=== PATIENT | female | born 1930 | race Caucasian/White ===

== ENCOUNTER 2016-09-11 | Outpatient (CLI) | payer MEDICARE, OTHER | END 2016-09-11 09:13 | disposition critical access hospital (66) | CPT/HCPCS: A0425; A0427 ==

== ENCOUNTER 2016-09-11 09:41 | Inpatient (IN) | payer MEDICARE, OTHER ==
[2016-09-11] MEDS ORDERED: HYDROmorphone 1 MG/ML SYRINGE IVP STA (10:34)
[2016-09-11] MEDS ORDERED: HYDROmorphone 1 MG/ML SYRINGE ONE (10:38)
[2016-09-11] MEDS ORDERED: MOXIFLOXACIN 400MG/250ML IV 250 ML IV STA (11:56)
[2016-09-11] MEDS ORDERED: metroNIDAZOLE 500 MG/100 ML 100 ML IV ONE (12:07)
[2016-09-11] MEDS ORDERED: LACTATED RINGERS 300 ML IV ONE (13:13)
[2016-09-11] MEDS ORDERED: LACTATED RINGERS 1,000 ML IV ONE ×2 (13:56→15:09)
[2016-09-11] MEDS ORDERED: ROCURONIUM 50 MG/5 ML VIAL IVP ONE (14:37)
[2016-09-11] MEDS ORDERED: ACETAMINOPHEN 1,000 MG/100 ML VIAL IV ONE (14:37)
[2016-09-11] MEDS ORDERED: VASOPRESSIN 20 UNIT/ML VIAL IVP ONE (14:37)
[2016-09-11] MEDS ORDERED: fentaNYL 100 MCG/2 ML VIAL IVP ONE (14:37)
[2016-09-11] MEDS ORDERED: metroNIDAZOLE 500 PREMIX IV ONE (14:37)
[2016-09-11] MEDS ORDERED: PHENYLEPHRINE 10 MG/ML VIAL IV ONE (14:37)
[2016-09-11] MEDS ORDERED: HYDROmorphone 1 MG/ML SYRINGE IVP ONE (14:37)
[2016-09-11] MEDS ORDERED: ONDANSETRON 4 MG/2 ML VIAL IVP ONE (14:37)
[2016-09-11] MEDS ORDERED: GLYCOPYRROLATE 1 MG/5 ML VIAL IVP ONE (14:37)
[2016-09-11] MEDS ORDERED: MIDAZOLAM 2 MG/2 ML VIAL IVP ONE (14:37)
[2016-09-11] MEDS ORDERED: SUCCINYLCHOLINE 200 MG/10 ML VIAL IVP ONE (14:37)
[2016-09-11] MEDS ORDERED: DEXAMETHASONE 4 MG/ML VIAL IVP ONE (14:37)
[2016-09-11] MEDS ORDERED: LIDOCAINE-MPF 2% 5 ML VIAL IM ONE (14:37)
[2016-09-11] MEDS ORDERED: PROPOFOL 200 MG/20 ML VIAL IVP ONE (14:37)
[2016-09-11] MEDS ORDERED: SODIUM CHLORIDE FLUSH 0.9% 10 ML SYRINGE IVP PRN (15:19)
[2016-09-11] MEDS ORDERED: fentaNYL 100 MCG/2 ML VIAL ONE (15:24)
[2016-09-11] MEDS ORDERED: LACTATED RINGERS 1,000 ML IV SCH (16:00)
[2016-09-11] MEDS ORDERED: metroNIDAZOLE 500 MG/100 ML 100 ML IV SCH (16:00)
[2016-09-11] MEDS: HYDROmorphone PCA 10 MG IV PRN (16:09)
[2016-09-11] MEDS: ACETAMINOPHEN 1,000 MG/100 ML 100 ML IV SCH ×2 (16:43→23:53)
[2016-09-11] MEDS: SODIUM CHLORIDE 0.9% 1,000 ML IV SCH (18:14)
[2016-09-11] MEDS: ENALAPRILAT 1.25 MG/ML VIAL IVP SCH (18:16)
[2016-09-11] MEDS: ONDANSETRON 4 MG/2 ML VIAL IVP PRN (18:16)
[2016-09-11] MEDS: MAGNESIUM SULFATE 2 GRAM 50 ML IV SCH ×2 (19:51→20:50)
[2016-09-11] MEDS ORDERED: LATANOPROST 0.005% OPHTH DROPS EACHEYE SCH (21:00)
[2016-09-11] MEDS: PANTOPRAZOLE 40 MG VIAL IVP SCH (21:22)
[2016-09-11] MEDS: SODIUM CHLORIDE FLUSH 0.9% 10 ML SYRINGE IVP SCH (21:56)
[2016-09-11] MEDS: BRIMONIDINE 0.15% OPHTH DROPS 5 ML EACHEYE SCH (21:57)
[2016-09-11] MEDS: metroNIDAZOLE 500 MG/100 ML 100 ML IV SCH (21:57)
[2016-09-12] MEDS: ENALAPRILAT 1.25 MG/ML VIAL IVP SCH ×2 (00:11→06:47)
[2016-09-12] MEDS: ACETAMINOPHEN 1,000 MG/100 ML 100 ML IV SCH ×4 (05:24→21:28)
[2016-09-12] MEDS ORDERED: HEPARIN 5,000 UNIT/ML VIAL SUBQ SCH (06:00)
[2016-09-12] MEDS: metroNIDAZOLE 500 MG/100 ML 100 ML IV SCH (06:15)
[2016-09-12] MEDS: SODIUM CHLORIDE 0.9% 1,000 ML IV SCH ×3 (06:42→22:41)
[2016-09-12] MEDS: BRIMONIDINE 0.15% OPHTH DROPS 5 ML EACHEYE SCH ×3 (06:44→21:28)
[2016-09-12] MEDS: SODIUM CHLORIDE FLUSH 0.9% 10 ML SYRINGE IVP SCH ×3 (06:45→21:29)
[2016-09-12] MEDS: PANTOPRAZOLE 40 MG VIAL IVP SCH ×2 (09:05→21:28)
[2016-09-12] MEDS ORDERED: SODIUM POLYSTYRENE SULFONATE 15 GM/60 ML BOTTLE PR ONE (09:30)
[2016-09-12] MEDS ORDERED: MOXIFLOXACIN 400MG/250ML IV 250 ML IV SCH (12:00)
[2016-09-12] MEDS ORDERED: SODIUM CHLORIDE 0.9% 500 ML IV ONE (13:14)
[2016-09-12] MEDS ORDERED: SODIUM CHLORIDE 0.9% 500 ML IV PRN (14:53)
[2016-09-12] MEDS: TPN (CLINIMIX E 5/15) 2,000 ML with MULTIVITAMIN 10 ML, TRACE ELEMENTS V CONC 1 ML IV SCH ×3 (19:12)
[2016-09-12] MEDS: FAT EMULSION 20% 250 ML IV SCH (19:12)
[2016-09-12] MEDS: HEPARIN 5,000 UNIT/ML VIAL SUBQ SCH (21:28)
[2016-09-13] MEDS: ACETAMINOPHEN 1,000 MG/100 ML 100 ML IV SCH ×4 (04:33→21:04)
[2016-09-13] MEDS: BRIMONIDINE 0.15% OPHTH DROPS 5 ML EACHEYE SCH ×3 (06:18→21:05)
[2016-09-13] MEDS: SODIUM CHLORIDE FLUSH 0.9% 10 ML SYRINGE IVP SCH ×3 (06:19→21:05)
[2016-09-13] MEDS: SODIUM CHLORIDE 0.9% 1,000 ML IV SCH ×3 (09:09→21:04)
[2016-09-13] MEDS: PANTOPRAZOLE 40 MG VIAL IVP SCH ×2 (09:12→21:04)
[2016-09-13] MEDS: SODIUM CHLORIDE FLUSH 0.9% 10 ML SYRINGE IVP PRN ×2 (09:20→09:21)
[2016-09-13] MEDS: HEPARIN 5,000 UNIT/ML VIAL SUBQ SCH ×2 (09:22→21:04)
[2016-09-13] MEDS: IMIPENEM/CILASTATIN 250 MG in SODIUM CHLORIDE 0.9% MINIBAG 100 ML IV SCH ×2 (13:23→19:18)
[2016-09-13] MEDS: TPN (CLINIMIX E 5/15) 2,000 ML with MULTIVITAMIN 10 ML, TRACE ELEMENTS V CONC 1 ML IV SCH ×3 (19:19)
[2016-09-13] MEDS: FAT EMULSION 20% 250 ML IV SCH (19:19)
[2016-09-13] MEDS ORDERED: METOPROLOL 5 MG/5 ML VIAL IVP STA (21:09)
[2016-09-14] MEDS: HYDROmorphone PCA 10 MG IV PRN (00:29)
[2016-09-14] MEDS: IMIPENEM/CILASTATIN 250 MG in SODIUM CHLORIDE 0.9% MINIBAG 100 ML IV SCH ×3 (02:12→18:33)
[2016-09-14] MEDS: ACETAMINOPHEN 1,000 MG/100 ML 100 ML IV SCH ×5 (03:47→20:29)
[2016-09-14] MEDS: BRIMONIDINE 0.15% OPHTH DROPS 5 ML EACHEYE SCH ×3 (05:02→21:02)
[2016-09-14] MEDS: SODIUM CHLORIDE FLUSH 0.9% 10 ML SYRINGE IVP SCH ×3 (05:03→21:02)
[2016-09-14] MEDS ORDERED: POTASSIUM PHOSPHATE 15 MMOL in SODIUM CHLORIDE 0.9% 250 ML IV ONE (06:16)
[2016-09-14] MEDS: SODIUM CHLORIDE 0.9% 1,000 ML IV SCH (08:12)
[2016-09-14] MEDS: HEPARIN 5,000 UNIT/ML VIAL SUBQ SCH ×2 (09:33→20:29)
[2016-09-14] MEDS: PANTOPRAZOLE 40 MG VIAL IVP SCH ×2 (09:36→20:29)
[2016-09-14] MEDS: SODIUM CHLORIDE FLUSH 0.9% 10 ML SYRINGE IVP PRN ×2 (09:37→11:49)
[2016-09-14] MEDS: ENALAPRILAT 1.25 MG/ML VIAL IVP PRN ×2 (11:47→20:29)
[2016-09-14] MEDS: METOPROLOL 5 MG/5 ML VIAL IVP PRN ×2 (16:20→22:47)
[2016-09-14] MEDS: FAT EMULSION 20% 250 ML IV SCH (19:06)
[2016-09-14] MEDS: TPN (CLINIMIX E 5/15) 2,000 ML with MULTIVITAMIN 10 ML, TRACE ELEMENTS V CONC 1 ML IV SCH ×3 (19:07)
[2016-09-15] MEDS: IMIPENEM/CILASTATIN 250 MG in SODIUM CHLORIDE 0.9% MINIBAG 100 ML IV SCH ×3 (01:34→18:21)
[2016-09-15] MEDS: ACETAMINOPHEN 1,000 MG/100 ML 100 ML IV SCH ×4 (01:34→21:08)
[2016-09-15] MEDS: ENALAPRILAT 1.25 MG/ML VIAL IVP PRN (01:50)
[2016-09-15] MEDS ORDERED: POTASSIUM PHOSPHATE 15 MMOL in SODIUM CHLORIDE 0.9% 250 ML IV ONE (05:39)
[2016-09-15] MEDS ORDERED: MAGNESIUM SULFATE 2 GRAM 50 ML IV ONE (05:39)
[2016-09-15] MEDS: SODIUM CHLORIDE FLUSH 0.9% 10 ML SYRINGE IVP SCH ×3 (05:54→21:09)
[2016-09-15] MEDS: BRIMONIDINE 0.15% OPHTH DROPS 5 ML EACHEYE SCH ×3 (05:54→21:10)
[2016-09-15] MEDS: POTASSIUM CHLOR 20 MEQ/100 ML 100 ML IV SCH ×2 (05:54→07:51)
[2016-09-15] MEDS: METOPROLOL 5 MG/5 ML VIAL IVP PRN ×2 (06:07→17:35)
[2016-09-15] MEDS ORDERED: cloNIDine 0.1 MG PATCH TOP SCH (08:00)
[2016-09-15] MEDS: SODIUM CHLORIDE 0.9% 1,000 ML IV SCH (08:22)
[2016-09-15] MEDS: HEPARIN 5,000 UNIT/ML VIAL SUBQ SCH ×2 (09:14→21:04)
[2016-09-15] MEDS: PANTOPRAZOLE 40 MG VIAL IVP SCH ×2 (09:16→21:09)
[2016-09-15] MEDS ORDERED: A & D OINTMENT 5 GM PACKET TOP ONE (09:29)
[2016-09-15] MEDS ORDERED: SODIUM CHLORIDE FLUSH 0.9% 10 ML SYRINGE IVP PRN (12:28)
[2016-09-15] MEDS ORDERED: SODIUM CHLORIDE FLUSH 0.9% 10 ML SYRINGE IVP SCH (14:00)
[2016-09-15] MEDS ORDERED: IMIPENEM/CILASTATIN 250 MG in SODIUM CHLORIDE 0.9% MINIBAG 100 ML IV SCH (14:00)
[2016-09-15] MEDS: [UNRECOGNIZED DRUG - OTHER] IV SCH ×8 (18:26)
[2016-09-15] MEDS: FAT EMULSION 20% 250 ML IV SCH (18:26)
[2016-09-15] MEDS: TPN IV SCH ×8 (18:26)
[2016-09-15] MEDS: MULTIVITAMIN IV SCH ×8 (18:26)
[2016-09-15] MEDS: TRACE ELEMENTS V IV SCH ×8 (18:26)
[2016-09-16] MEDS: IMIPENEM/CILASTATIN 250 MG in SODIUM CHLORIDE 0.9% MINIBAG 100 ML IV SCH ×3 (01:22→18:20)
[2016-09-16] MEDS: ACETAMINOPHEN 1,000 MG/100 ML 100 ML IV SCH ×4 (01:22→19:41)
[2016-09-16] MEDS: SODIUM CHLORIDE FLUSH 0.9% 10 ML SYRINGE IVP SCH ×3 (05:18→21:03)
[2016-09-16] MEDS: BRIMONIDINE 0.15% OPHTH DROPS 5 ML EACHEYE SCH ×3 (05:19→21:03)
[2016-09-16] MEDS ORDERED: A & D OINTMENT 5 GM PACKET TOP PRN (05:31)
[2016-09-16] MEDS ORDERED: A & D OINTMENT 5 GM PACKET TOP ONE (05:40)
[2016-09-16] MEDS: HEPARIN 5,000 UNIT/ML VIAL SUBQ SCH ×2 (09:58→21:02)
[2016-09-16] MEDS: PANTOPRAZOLE 40 MG VIAL IVP SCH ×2 (09:58→21:03)
[2016-09-16] MEDS: HYDROmorphone PCA 10 MG IV PRN (13:30)
[2016-09-16] MEDS: ONDANSETRON 4 MG/2 ML VIAL IVP PRN (16:02)
[2016-09-16] MEDS: SODIUM CHLORIDE 0.9% 1,000 ML IV SCH (18:19)
[2016-09-16] MEDS: TPN IV SCH ×8 (18:20)
[2016-09-16] MEDS: FAT EMULSION 20% 250 ML IV SCH (18:20)
[2016-09-16] MEDS: MULTIVITAMIN IV SCH ×8 (18:20)
[2016-09-16] MEDS: [UNRECOGNIZED DRUG - OTHER] IV SCH ×8 (18:20)
[2016-09-16] MEDS: TRACE ELEMENTS V IV SCH ×8 (18:20)
[2016-09-16] MEDS ORDERED: MIN OIL/DIMETHICON/COCONUT OIL 92 GM TUBE TOP PRN (23:31)
[2016-09-17] MEDS: ACETAMINOPHEN 1,000 MG/100 ML 100 ML IV SCH ×4 (01:09→21:11)
[2016-09-17] MEDS: IMIPENEM/CILASTATIN 250 MG in SODIUM CHLORIDE 0.9% MINIBAG 100 ML IV SCH ×3 (01:09→19:08)
[2016-09-17] MEDS: BRIMONIDINE 0.15% OPHTH DROPS 5 ML EACHEYE SCH ×3 (05:53→21:12)
[2016-09-17] MEDS: SODIUM CHLORIDE FLUSH 0.9% 10 ML SYRINGE IVP SCH ×3 (05:54→21:12)
[2016-09-17] MEDS: SODIUM CHLORIDE FLUSH 0.9% 10 ML SYRINGE IVP PRN ×2 (05:54→10:15)
[2016-09-17] MEDS: PANTOPRAZOLE 40 MG VIAL IVP SCH ×2 (08:39→21:11)
[2016-09-17] MEDS: HEPARIN 5,000 UNIT/ML VIAL SUBQ SCH ×2 (08:40→21:09)
[2016-09-17] MEDS: ONDANSETRON 4 MG/2 ML VIAL IVP PRN (14:26)
[2016-09-17] MEDS ORDERED: BISACODYL 10 MG SUPP PR ONE ×2 (14:45→17:00)
[2016-09-17] MEDS ORDERED: DIATR MEGLU/DIATRIZOATE SODIUM 120 ML BOTTLE PO ONE (16:10)
[2016-09-17] MEDS: FAT EMULSION 20% 250 ML IV SCH (19:08)
[2016-09-17] MEDS: MULTIVITAMIN IV SCH ×8 (19:08)
[2016-09-17] MEDS: TRACE ELEMENTS V IV SCH ×8 (19:08)
[2016-09-17] MEDS: TPN IV SCH ×8 (19:08)
[2016-09-17] MEDS: [UNRECOGNIZED DRUG - OTHER] IV SCH ×8 (19:08)
[2016-09-18] MEDS: ACETAMINOPHEN 1,000 MG/100 ML 100 ML IV SCH (01:54)
[2016-09-18] MEDS: IMIPENEM/CILASTATIN 250 MG in SODIUM CHLORIDE 0.9% MINIBAG 100 ML IV SCH ×3 (02:44→19:51)
[2016-09-18] MEDS: ONDANSETRON 4 MG/2 ML VIAL IVP PRN ×3 (04:41→16:30)
[2016-09-18] MEDS: SODIUM CHLORIDE FLUSH 0.9% 10 ML SYRINGE IVP SCH ×3 (06:09→19:52)
[2016-09-18] MEDS: BRIMONIDINE 0.15% OPHTH DROPS 5 ML EACHEYE SCH ×3 (06:18→21:07)
[2016-09-18] MEDS: HYDROmorphone PCA 10 MG IV PRN (07:42)
[2016-09-18] MEDS ORDERED: BISACODYL 10 MG SUPP PR PRN (08:17)
[2016-09-18] MEDS: SODIUM CHLORIDE 0.9% 1,000 ML IV SCH (08:26)
[2016-09-18] MEDS: PANTOPRAZOLE 40 MG TABLET PO SCH ×2 (08:46→21:07)
[2016-09-18] MEDS: HEPARIN 5,000 UNIT/ML VIAL SUBQ SCH ×2 (08:47→21:06)
[2016-09-18] MEDS: MAGNESIUM HYDROXIDE 2,400 MG/30 ML UDC PO PRN (08:50)
[2016-09-18] MEDS: oxyCOD/ACETAMIN 5 MG/325 MG TABLET PO PRN ×2 (10:22→15:18)
[2016-09-18] MEDS ORDERED: amLODIPine 5 MG TABLET PO SCH (13:00)
[2016-09-18] MEDS ORDERED: LISINOPRIL 20 MG TABLET PO SCH (13:00)
[2016-09-18] MEDS: MORPHINE 2 MG/ML SYRINGE IVP PRN (16:10)
[2016-09-18] MEDS ORDERED: LIDOCAINE JELLY 2% 5 ML TUBE TOP ONE (16:22)
[2016-09-18] MEDS: SODIUM CHLORIDE FLUSH 0.9% 10 ML SYRINGE IVP PRN (16:30)
[2016-09-18] MEDS ORDERED: IOPAMIDOL-300 100 ML VIAL IVP ONE (17:54)
[2016-09-18] MEDS ORDERED: FUROSEMIDE 20 MG/2 ML VIAL IVP ONE (19:00)
[2016-09-18] MEDS: FAT EMULSION 20% 250 ML IV SCH (19:34)
[2016-09-18] MEDS: MULTIVITAMIN IV SCH ×8 (19:35)
[2016-09-18] MEDS: TRACE ELEMENTS V IV SCH ×8 (19:35)
[2016-09-18] MEDS: [UNRECOGNIZED DRUG - OTHER] IV SCH ×8 (19:35)
[2016-09-18] MEDS: TPN IV SCH ×8 (19:35)
[2016-09-18] MEDS: NYSTATIN 500000 UNITS/5 ML UDC PO SCH ×2 (20:04→21:07)
[2016-09-19] MEDS: IMIPENEM/CILASTATIN 250 MG in SODIUM CHLORIDE 0.9% MINIBAG 100 ML IV SCH ×3 (01:45→18:33)
[2016-09-19] MEDS: ONDANSETRON 4 MG/2 ML VIAL IVP PRN ×2 (02:09→08:40)
[2016-09-19] MEDS: BRIMONIDINE 0.15% OPHTH DROPS 5 ML EACHEYE SCH ×3 (05:45→21:26)
[2016-09-19] MEDS: SODIUM CHLORIDE FLUSH 0.9% 10 ML SYRINGE IVP SCH ×3 (05:45→21:13)
[2016-09-19] MEDS: NYSTATIN 500000 UNITS/5 ML UDC PO SCH ×4 (08:33→21:13)
[2016-09-19] MEDS: HEPARIN 5,000 UNIT/ML VIAL SUBQ SCH ×2 (08:35→21:12)
[2016-09-19] MEDS: PANTOPRAZOLE 40 MG VIAL IVP SCH ×2 (08:38→21:13)
[2016-09-19] MEDS: INSULIN REGULAR HUMAN 100 UNIT/1 ML 10 ML MDV SUBQ SCH ×3 (09:10→18:34)
[2016-09-19] MEDS ORDERED: diphenhydrAMINE 25 MG CAPSULE PO ONE (10:30)
[2016-09-19] MEDS ORDERED: ACETAMINOPHEN 325 MG TABLET PO ONE (10:30)
[2016-09-19] MEDS: SODIUM CHLORIDE 0.9% 1,000 ML IV SCH (10:58)
[2016-09-19] MEDS ORDERED: FUROSEMIDE 20 MG/2 ML VIAL IVP SCH (11:00)
[2016-09-19] MEDS: METOPROLOL 5 MG/5 ML VIAL IVP SCH ×2 (12:15→18:31)
[2016-09-19] MEDS: ENALAPRILAT 1.25 MG/ML VIAL IVP SCH ×2 (12:16→18:32)
[2016-09-19] MEDS: [UNRECOGNIZED DRUG - OTHER] IV SCH ×8 (18:33)
[2016-09-19] MEDS: MULTIVITAMIN IV SCH ×8 (18:33)
[2016-09-19] MEDS: TRACE ELEMENTS V IV SCH ×8 (18:33)
[2016-09-19] MEDS: TPN IV SCH ×8 (18:33)
[2016-09-19] MEDS: FAT EMULSION 20% 250 ML IV SCH (18:33)
[2016-09-19] MEDS: MORPHINE 2 MG/ML SYRINGE IVP PRN (21:34)
[2016-09-20] MEDS: METOPROLOL 5 MG/5 ML VIAL IVP SCH ×4 (01:17→21:27)
[2016-09-20] MEDS: ENALAPRILAT 1.25 MG/ML VIAL IVP SCH ×5 (01:17→23:57)
[2016-09-20] MEDS: INSULIN REGULAR HUMAN 100 UNIT/1 ML 10 ML MDV SUBQ SCH ×4 (01:18→19:09)
[2016-09-20] MEDS: IMIPENEM/CILASTATIN 250 MG in SODIUM CHLORIDE 0.9% MINIBAG 100 ML IV SCH ×3 (01:19→19:09)
[2016-09-20] MEDS: MORPHINE 2 MG/ML SYRINGE IVP PRN (01:19)
[2016-09-20] MEDS: SODIUM CHLORIDE FLUSH 0.9% 10 ML SYRINGE IVP SCH ×3 (06:18→22:02)
[2016-09-20] MEDS: BRIMONIDINE 0.15% OPHTH DROPS 5 ML EACHEYE SCH ×3 (06:39→22:03)
[2016-09-20] MEDS: NYSTATIN 500000 UNITS/5 ML UDC PO SCH ×4 (08:52→21:29)
[2016-09-20] MEDS: PANTOPRAZOLE 40 MG VIAL IVP SCH ×2 (08:52→21:29)
[2016-09-20] MEDS: HEPARIN 5,000 UNIT/ML VIAL SUBQ SCH ×2 (08:54→21:26)
[2016-09-20] MEDS: MAGNESIUM HYDROXIDE 2,400 MG/30 ML UDC PO PRN (10:01)
[2016-09-20] MEDS ORDERED: MAGNESIUM HYDROXIDE 2,400 MG/30 ML UDC NG ONE (10:45)
[2016-09-20] MEDS ORDERED: TPN (CLINIMIX E 5/15) 2,000 ML with MULTIVITAMIN 10 ML, TRACE ELEMENTS V CONC 1 ML, POT... IV SCH ×5 (19:00)
[2016-09-20] MEDS: SODIUM CHLORIDE FLUSH 0.9% 10 ML SYRINGE IVP PRN (19:10)
[2016-09-20] MEDS: FAT EMULSION 20% 250 ML IV SCH (19:38)
[2016-09-21] MEDS: INSULIN REGULAR HUMAN 100 UNIT/1 ML 10 ML MDV SUBQ SCH ×3 (00:01→13:41)
[2016-09-21] MEDS: MORPHINE 2 MG/ML SYRINGE IVP PRN ×3 (01:13→23:55)
[2016-09-21] MEDS: TEMAZEPAM 15 MG CAPSULE PO PRN ×2 (01:14→21:54)
[2016-09-21] MEDS: ONDANSETRON 4 MG/2 ML VIAL IVP PRN (01:14)
[2016-09-21] MEDS: IMIPENEM/CILASTATIN 250 MG in SODIUM CHLORIDE 0.9% MINIBAG 100 ML IV SCH ×3 (01:25→17:58)
[2016-09-21] MEDS: METOPROLOL 5 MG/5 ML VIAL IVP SCH ×3 (02:32→14:59)
[2016-09-21] MEDS: ENALAPRILAT 1.25 MG/ML VIAL IVP SCH ×2 (05:52→12:14)
[2016-09-21] MEDS: SODIUM CHLORIDE FLUSH 0.9% 10 ML SYRINGE IVP SCH ×3 (05:53→21:43)
[2016-09-21] MEDS: BRIMONIDINE 0.15% OPHTH DROPS 5 ML EACHEYE SCH ×3 (05:53→21:17)
[2016-09-21] MEDS ORDERED: BENZOCAINE/MENTHOL LOZENGE MM ONE ×2 (08:43→14:45)
[2016-09-21] MEDS: HEPARIN 5,000 UNIT/ML VIAL SUBQ SCH ×2 (08:50→21:15)
[2016-09-21] MEDS: NYSTATIN 500000 UNITS/5 ML UDC PO SCH ×4 (08:51→21:16)
[2016-09-21] MEDS: PANTOPRAZOLE 40 MG VIAL IVP SCH (08:51)
[2016-09-21] MEDS: PANTOPRAZOLE 40 MG TABLET PO SCH (18:00)
[2016-09-21] MEDS: FAT EMULSION 20% 250 ML IV SCH (19:32)
[2016-09-21] MEDS: MULTIVITAMIN IV SCH ×8 (19:33)
[2016-09-21] MEDS: [UNRECOGNIZED DRUG - OTHER] IV SCH ×8 (19:33)
[2016-09-21] MEDS: TRACE ELEMENTS V IV SCH ×8 (19:33)
[2016-09-21] MEDS: TPN IV SCH ×8 (19:33)
[2016-09-21] MEDS: oxyCOD/ACETAMIN 5 MG/325 MG TABLET PO PRN (21:16)
[2016-09-21] MEDS: BENZOCAINE/MENTHOL LOZENGE MM PRN (21:51)
[2016-09-21] MEDS: SODIUM CHLORIDE FLUSH 0.9% 10 ML SYRINGE IVP PRN (23:55)
[2016-09-22] MEDS: IMIPENEM/CILASTATIN 250 MG in SODIUM CHLORIDE 0.9% MINIBAG 100 ML IV SCH ×3 (01:59→17:19)
[2016-09-22] MEDS: PANTOPRAZOLE 40 MG TABLET PO SCH (05:47)
[2016-09-22] MEDS: BRIMONIDINE 0.15% OPHTH DROPS 5 ML EACHEYE SCH ×3 (05:47→21:41)
[2016-09-22] MEDS: SODIUM CHLORIDE FLUSH 0.9% 10 ML SYRINGE IVP SCH ×3 (05:47→21:44)
[2016-09-22] MEDS: SODIUM CHLORIDE FLUSH 0.9% 10 ML SYRINGE IVP PRN (05:47)
[2016-09-22] MEDS: HEPARIN 5,000 UNIT/ML VIAL SUBQ SCH ×2 (08:56→21:42)
[2016-09-22] MEDS: NYSTATIN 500000 UNITS/5 ML UDC PO SCH ×4 (08:59→21:41)
[2016-09-22] MEDS: FLUCONAZOLE 200 MG/100 ML 100 ML IV SCH (08:59)
[2016-09-22] MEDS: LISINOPRIL 20 MG TABLET PO SCH (08:59)
[2016-09-22] MEDS: amLODIPine 5 MG TABLET PO SCH (08:59)
[2016-09-22] MEDS ORDERED: LISINOPRIL 20 MG TABLET PO SCH (09:00)
[2016-09-22] MEDS: POLYETHYLENE GLYCOL 3350 17 GM PACKET PO PRN (10:22)
[2016-09-22] MEDS: ACETAMINOPHEN/CODEINE 300 MG/30 MG TABLET PO PRN ×2 (11:21→19:34)
[2016-09-22] MEDS: FERROUS SULFATE 325 MG TABLET PO SCH (17:19)
[2016-09-22] MEDS: BENZOCAINE/MENTHOL LOZENGE MM PRN (19:36)
[2016-09-22] MEDS: TPN IV SCH ×8 (19:49)
[2016-09-22] MEDS: MULTIVITAMIN IV SCH ×8 (19:49)
[2016-09-22] MEDS: [UNRECOGNIZED DRUG - OTHER] IV SCH ×8 (19:49)
[2016-09-22] MEDS: TRACE ELEMENTS V IV SCH ×8 (19:49)
[2016-09-22] MEDS: FAT EMULSION 20% 250 ML IV SCH (19:49)
[2016-09-22] MEDS: TEMAZEPAM 15 MG CAPSULE PO PRN (21:43)
[2016-09-23] MEDS: IMIPENEM/CILASTATIN 250 MG in SODIUM CHLORIDE 0.9% MINIBAG 100 ML IV SCH ×3 (01:46→17:50)
[2016-09-23] MEDS: BENZOCAINE/MENTHOL LOZENGE MM PRN ×3 (01:46→17:52)
[2016-09-23] MEDS: ACETAMINOPHEN/CODEINE 300 MG/30 MG TABLET PO PRN (01:47)
[2016-09-23] MEDS: SODIUM CHLORIDE FLUSH 0.9% 10 ML SYRINGE IVP SCH ×3 (06:44→20:57)
[2016-09-23] MEDS: BRIMONIDINE 0.15% OPHTH DROPS 5 ML EACHEYE SCH ×3 (06:44→20:57)
[2016-09-23] MEDS: PANTOPRAZOLE 40 MG TABLET PO SCH (06:44)
[2016-09-23] MEDS ORDERED: MAGNESIUM HYDROXIDE 2,400 MG/30 ML UDC PO ONE (09:00)
[2016-09-23] MEDS: FLUCONAZOLE 200 MG/100 ML 100 ML IV SCH (09:09)
[2016-09-23] MEDS: DOCUSATE SODIUM 250 MG CAPSULE PO SCH (09:09)
[2016-09-23] MEDS: POLYETHYLENE GLYCOL 3350 17 GM PACKET PO PRN (09:10)
[2016-09-23] MEDS: LISINOPRIL 20 MG TABLET PO SCH (09:10)
[2016-09-23] MEDS: amLODIPine 5 MG TABLET PO SCH (09:10)
[2016-09-23] MEDS: NYSTATIN 500000 UNITS/5 ML UDC PO SCH ×3 (09:10→17:51)
[2016-09-23] MEDS: FERROUS SULFATE 325 MG TABLET PO SCH ×2 (09:14→17:51)
[2016-09-23] MEDS: MULTIVITAMIN TABLET PO SCH (09:14)
[2016-09-23] MEDS ORDERED: SODIUM CHLORIDE 0.9% 100ML 100 ML IV ONE (09:23)
[2016-09-23] MEDS: HEPARIN 5,000 UNIT/ML VIAL SUBQ SCH ×2 (09:46→21:02)
[2016-09-23] MEDS: ONDANSETRON 4 MG/2 ML VIAL IVP PRN (20:43)
[2016-09-23] MEDS: SODIUM CHLORIDE FLUSH 0.9% 10 ML SYRINGE IVP PRN (20:58)
[2016-09-23] MEDS ORDERED: MORPHINE 2 MG/ML SYRINGE IVP SCH (23:00)
[2016-09-24] MEDS: IMIPENEM/CILASTATIN 250 MG in SODIUM CHLORIDE 0.9% MINIBAG 100 ML IV SCH ×3 (02:40→17:44)
[2016-09-24] MEDS: SODIUM CHLORIDE FLUSH 0.9% 10 ML SYRINGE IVP SCH ×3 (06:54→21:05)
[2016-09-24] MEDS: PANTOPRAZOLE 40 MG TABLET PO SCH (06:54)
[2016-09-24] MEDS: BRIMONIDINE 0.15% OPHTH DROPS 5 ML EACHEYE SCH ×3 (06:54→21:04)
[2016-09-24] MEDS: MORPHINE 2 MG/ML SYRINGE IVP PRN ×3 (10:20→17:42)
[2016-09-24] MEDS: HEPARIN 5,000 UNIT/ML VIAL SUBQ SCH ×2 (10:59→20:57)
[2016-09-24] MEDS: FLUCONAZOLE 200 MG/100 ML 100 ML IV SCH ×2 (10:59→13:25)
[2016-09-24] MEDS: amLODIPine 5 MG TABLET PO SCH (11:00)
[2016-09-24] MEDS: DOCUSATE SODIUM 250 MG CAPSULE PO SCH (11:00)
[2016-09-24] MEDS: MULTIVITAMIN TABLET PO SCH (11:00)
[2016-09-24] MEDS: LACTATED RINGERS 1,000 ML IV SCH ×2 (11:01→13:22)
[2016-09-24] MEDS: FERROUS SULFATE 325 MG TABLET PO SCH ×2 (11:01→17:47)
[2016-09-24] MEDS: METOCLOPRAMIDE 10 MG/2 ML VIAL IVP SCH ×3 (11:01→20:58)
[2016-09-24] MEDS: LISINOPRIL 20 MG TABLET PO SCH (11:01)
[2016-09-24] MEDS: ONDANSETRON 4 MG/2 ML VIAL IVP PRN (13:21)
[2016-09-24] MEDS: methylPREDNISolone SUCCINATE 40 MG/ML VIAL IVP SCH (21:04)
[2016-09-24] MEDS ORDERED: KETOROLAC 30 MG/ML VIAL IVP SCH (22:36)
[2016-09-24] MEDS ORDERED: LORazepam 2 MG/ML SYRINGE IVP SCH (22:37)
[2016-09-25] MEDS: SODIUM CHLORIDE FLUSH 0.9% 10 ML SYRINGE IVP PRN ×2 (00:48→21:51)
[2016-09-25] MEDS: METOCLOPRAMIDE 10 MG/2 ML VIAL IVP SCH ×4 (01:23→21:39)
[2016-09-25] MEDS: IMIPENEM/CILASTATIN 250 MG in SODIUM CHLORIDE 0.9% MINIBAG 100 ML IV SCH (01:26)
[2016-09-25] MEDS: BRIMONIDINE 0.15% OPHTH DROPS 5 ML EACHEYE SCH ×3 (06:58→21:51)
[2016-09-25] MEDS: methylPREDNISolone SUCCINATE 40 MG/ML VIAL IVP SCH ×3 (06:58→21:51)
[2016-09-25] MEDS: PANTOPRAZOLE 40 MG TABLET PO SCH (06:58)
[2016-09-25] MEDS: SODIUM CHLORIDE FLUSH 0.9% 10 ML SYRINGE IVP SCH ×3 (06:58→21:39)
[2016-09-25] MEDS: FLUCONAZOLE 200 MG/100 ML 100 ML IV SCH (08:51)
[2016-09-25] MEDS: DOCUSATE SODIUM 250 MG CAPSULE PO SCH ×2 (08:59→09:08)
[2016-09-25] MEDS: amLODIPine 5 MG TABLET PO SCH (08:59)
[2016-09-25] MEDS: FERROUS SULFATE 325 MG TABLET PO SCH ×2 (09:00→16:28)
[2016-09-25] MEDS: COLCHICINE 0.6 MG TABLET PO SCH (09:00)
[2016-09-25] MEDS: HEPARIN 5,000 UNIT/ML VIAL SUBQ SCH ×2 (09:00→21:39)
[2016-09-25] MEDS: MULTIVITAMIN TABLET PO SCH (09:00)
[2016-09-25] MEDS: LISINOPRIL 20 MG TABLET PO SCH (09:01)
[2016-09-25] MEDS: LACTATED RINGERS 1,000 ML IV SCH ×2 (09:01→21:39)
[2016-09-25] MEDS: BENZOCAINE/MENTHOL LOZENGE MM PRN ×2 (14:18→21:51)
[2016-09-26] MEDS: TEMAZEPAM 15 MG CAPSULE PO PRN (00:08)
[2016-09-26] MEDS: METOCLOPRAMIDE 10 MG/2 ML VIAL IVP SCH ×4 (01:05→20:35)
[2016-09-26] MEDS: SODIUM CHLORIDE FLUSH 0.9% 10 ML SYRINGE IVP PRN ×4 (01:05→21:58)
[2016-09-26] MEDS: BRIMONIDINE 0.15% OPHTH DROPS 5 ML EACHEYE SCH ×3 (06:45→21:53)
[2016-09-26] MEDS: PANTOPRAZOLE 40 MG TABLET PO SCH (06:46)
[2016-09-26] MEDS: methylPREDNISolone SUCCINATE 40 MG/ML VIAL IVP SCH ×3 (06:46→21:53)
[2016-09-26] MEDS: oxyCOD/ACETAMIN 5 MG/325 MG TABLET PO PRN (06:47)
[2016-09-26] MEDS: SODIUM CHLORIDE FLUSH 0.9% 10 ML SYRINGE IVP SCH ×3 (08:11→20:42)
[2016-09-26] MEDS: FERROUS SULFATE 325 MG TABLET PO SCH ×2 (08:25→17:31)
[2016-09-26] MEDS: LISINOPRIL 20 MG TABLET PO SCH (08:25)
[2016-09-26] MEDS: COLCHICINE 0.6 MG TABLET PO SCH (08:25)
[2016-09-26] MEDS: amLODIPine 5 MG TABLET PO SCH (08:25)
[2016-09-26] MEDS: FLUCONAZOLE 200 MG/100 ML 100 ML IV SCH (08:26)
[2016-09-26] MEDS: MULTIVITAMIN TABLET PO SCH (08:26)
[2016-09-26] MEDS: HEPARIN 5,000 UNIT/ML VIAL SUBQ SCH ×2 (08:26→20:36)
[2016-09-26] MEDS: DOCUSATE SODIUM 250 MG CAPSULE PO SCH (08:26)
[2016-09-26] MEDS: LACTATED RINGERS 1,000 ML IV SCH (08:38)
[2016-09-26] MEDS ORDERED: POLYETHYLENE GLYCOL 3350 17 GM PACKET PO ONE ×2 (12:00→13:00)
[2016-09-26] MEDS ORDERED: SENNA 8.6 MG TABLET PO ONE (13:00)
[2016-09-26] MEDS: BENZOCAINE/MENTHOL LOZENGE MM PRN (21:53)
[2016-09-27] MEDS: TEMAZEPAM 15 MG CAPSULE PO PRN (00:24)
[2016-09-27] MEDS: METOCLOPRAMIDE 10 MG/2 ML VIAL IVP SCH ×4 (02:26→21:14)
[2016-09-27] MEDS: methylPREDNISolone SUCCINATE 40 MG/ML VIAL IVP SCH ×3 (05:52→21:19)
[2016-09-27] MEDS: BRIMONIDINE 0.15% OPHTH DROPS 5 ML EACHEYE SCH ×3 (05:56→22:31)
[2016-09-27] MEDS: PANTOPRAZOLE 40 MG TABLET PO SCH (05:57)
[2016-09-27] MEDS: SODIUM CHLORIDE FLUSH 0.9% 10 ML SYRINGE IVP SCH ×3 (05:58→21:21)
[2016-09-27] MEDS: SODIUM CHLORIDE FLUSH 0.9% 10 ML SYRINGE IVP PRN ×2 (05:58→21:21)
[2016-09-27] MEDS: COLCHICINE 0.6 MG TABLET PO SCH (08:36)
[2016-09-27] MEDS: HEPARIN 5,000 UNIT/ML VIAL SUBQ SCH ×2 (08:36→22:27)
[2016-09-27] MEDS: MULTIVITAMIN TABLET PO SCH (08:37)
[2016-09-27] MEDS: FERROUS SULFATE 325 MG TABLET PO SCH ×2 (08:37→17:50)
[2016-09-27] MEDS: DOCUSATE SODIUM 250 MG CAPSULE PO SCH (08:50)
[2016-09-27] MEDS: LISINOPRIL 20 MG TABLET PO SCH (08:50)
[2016-09-27] MEDS: amLODIPine 5 MG TABLET PO SCH (08:50)
[2016-09-27] MEDS: FLUCONAZOLE 200 MG/100 ML 100 ML IV SCH (10:38)
[2016-09-27] MEDS: SENNA 8.6 MG TABLET PO SCH (10:41)
[2016-09-27] MEDS: POLYETHYLENE GLYCOL 3350 17 GM PACKET PO SCH (10:41)
[2016-09-27] MEDS: BENZOCAINE/MENTHOL LOZENGE MM PRN (21:14)
[2016-09-28] MEDS: TEMAZEPAM 15 MG CAPSULE PO PRN (00:29)
[2016-09-28] MEDS: METOCLOPRAMIDE 10 MG/2 ML VIAL IVP SCH ×3 (02:02→13:59)
[2016-09-28] MEDS ORDERED: ACETAMINOPHEN 325 MG TABLET PO PRN (03:59)
[2016-09-28] MEDS: SODIUM CHLORIDE FLUSH 0.9% 10 ML SYRINGE IVP SCH ×2 (06:26→13:59)
[2016-09-28] MEDS: methylPREDNISolone SUCCINATE 40 MG/ML VIAL IVP SCH ×2 (06:26→13:57)
[2016-09-28] MEDS: SODIUM CHLORIDE FLUSH 0.9% 10 ML SYRINGE IVP PRN (06:26)
[2016-09-28] MEDS: BRIMONIDINE 0.15% OPHTH DROPS 5 ML EACHEYE SCH ×2 (06:28→13:56)
[2016-09-28] MEDS: PANTOPRAZOLE 40 MG TABLET PO SCH (06:30)
[2016-09-28] MEDS: FERROUS SULFATE 325 MG TABLET PO SCH (09:27)
[2016-09-28] MEDS: MULTIVITAMIN TABLET PO SCH (09:27)
[2016-09-28] MEDS: COLCHICINE 0.6 MG TABLET PO SCH (09:27)
[2016-09-28] MEDS: amLODIPine 5 MG TABLET PO SCH (09:27)
[2016-09-28] MEDS: DOCUSATE SODIUM 250 MG CAPSULE PO SCH (09:28)
[2016-09-28] MEDS: SENNA 8.6 MG TABLET PO SCH (09:28)
[2016-09-28] MEDS: LISINOPRIL 20 MG TABLET PO SCH (09:28)
[2016-09-28] MEDS: FLUCONAZOLE 200 MG/100 ML 100 ML IV SCH (09:28)
[2016-09-28] MEDS: POLYETHYLENE GLYCOL 3350 17 GM PACKET PO SCH (09:28)
[2016-09-28] MEDS: HEPARIN 5,000 UNIT/ML VIAL SUBQ SCH (09:28)
== END 2016-09-28 14:55 | DRG 329 ==
PROC: 0DU907Z Supplement Duodenum with Autologous Tissue Substitute, Open Approach (ICD-10-PCS; principal; 2016-09-11 12:45)
PROC: 0DNS4ZZ (ICD-10-PCS; principal; 2016-09-11 12:45)
PROC: 3E0436Z Introduction of Nutritional Substance into Central Vein, Percutaneous Approach (ICD-10-PCS; 2016-09-13)
PROC: 02HV33Z Insertion of Infusion Device into Superior Vena Cava, Percutaneous Approach (ICD-10-PCS; 2016-09-13)
PROC: 30233N1 Transfusion of Nonautologous Red Blood Cells into Peripheral Vein, Percutaneous Approach (ICD-10-PCS; 2016-09-19)
DX: K26.5 Chronic or unspecified duodenal ulcer with perforation (principal); R93.5 Abnormal findings on diagnostic imaging of other abdominal regions, including retroperitoneum; K65.3 Choleperitonitis; D62 Acute posthemorrhagic anemia; N17.9 Acute kidney failure, unspecified; E87.1 Hypo-osmolality and hyponatremia; K56.7 Ileus, unspecified; T73.0XXA Starvation, initial encounter; X58.XXXA Exposure to other specified factors, initial encounter; B37.2 Candidiasis of skin and nail; K66.0 Peritoneal adhesions (postprocedural) (postinfection); E78.5 Hyperlipidemia, unspecified; I12.9 Hypertensive chronic kidney disease with stage 1 through stage 4 chronic kidney disease, or unspecified chronic kidney disease; N18.9 Chronic kidney disease, unspecified; R33.9 Retention of urine, unspecified; D72.829 Elevated white blood cell count, unspecified; E87.5 Hyperkalemia; I95.9 Hypotension, unspecified; E87.6 Hypokalemia; E83.39 Other disorders of phosphorus metabolism; R00.0 Tachycardia, unspecified; M79.674 Pain in right toe(s); Q81.9 Epidermolysis bullosa, unspecified; Z60.2 Problems related to living alone; Z90.49 Acquired absence of other specified parts of digestive tract; Z88.0 Allergy status to penicillin; Z68.23 Body mass index [BMI] 23.0-23.9, adult

== ENCOUNTER 2017-04-23 08:26 | Outpatient (CLI) | payer MEDICARE, OTHER ==
[2017-04-23 11:59] LABS: BILIRUBIN,URINE NEGATIVE (NEGATIVE); PH,URINE 5.5 PH (5.0-7.5)
[2017-04-23 12:03] LABS: BASOPHILS % (AUTO) 1.2 %; EOSINOPHILS # (AUTO) 0.1 10^3/uL (0.0-0.7); EOSINOPHILS % (AUTO) 3.6 %; HCT - HEMATOCRIT 30.1 % (37.0-47.0); LYMPHOCYTES # (AUTO) 1.2 10^3/uL (1.5-3.5); LYMPHOCYTES % (AUTO) 38.4 %; MEAN CORPUSCULAR HEMOGLOBIN 30.3 pg (27.0-31.0); MEAN CORPUSCULAR HGB CONC 33.2 g/dL (32.0-36.0); MEAN CORPUSCULAR VOLUME 91.4 fL (81.0-99.0); MEAN PLATELET VOLUME 7.6 fL (7.9-10.8); MONOCYTES # (AUTO) 0.3 10^3/uL (0.0-1.0); MONOCYTES % (AUTO) 11.1 %; NEUTROPHILS # (AUTO) 1.4 10^3/uL (1.5-6.6); NEUTROPHILS % (AUTO) 45.7 %; NUCLEATED RED BLOOD CELLS AUTO 0.1 /100WBC; RED BLOOD COUNT 3.29 10^6/uL (4.20-5.40); RED CELL DISTRIBUTION WIDTH 13.5 % (12.0-15.0); UA CHARGE (STRIP ONLY) YES; UR CULTURE IF IND NOT INDICATED
[2017-04-23 12:15] LABS: CALCIUM 9.4 mg/dL (8.5-10.3); CREATININE 1.6 mg/dL (0.4-1.0); POTASSIUM 4.3 mmol/L (3.5-5.0)
== END 2017-04-23 08:27 | disposition home or self-care (01) ==
LOC: LAB.F 08:26
PROVIDERS: ATTEND Internal Medicine Nephrology
DX: N18.3 Chronic kidney disease, stage 3 (moderate) (principal); R31.9 Hematuria, unspecified; E55.9 Vitamin D deficiency, unspecified; N18.9 Chronic kidney disease, unspecified; D63.1 Anemia in chronic kidney disease; R80.9 Proteinuria, unspecified
CPT/HCPCS: 36415; 80048; 81001; 81003; 82040; 82043; 82306; 82570; 85025; 87086

== ENCOUNTER 2017-06-10 00:42 | Emergency (ER) | payer MEDICARE, OTHER ==
--- NOTE | 2017-06-10 01:23 | ED Physician Documentation ---
PD HPI WOUND RECHECK - Stated complaint Stated Complaint: ABDOMINAL WOUND - Chief complaint Chief Complaint: Abd Pain - Histroy obtained from History obtained from: Patient, Family - History of Present Illness Location: Abdomen Timing - onset: Today Associated symptoms: Drainage Similar symptoms before: Work up / diagnostics, Treatment, Follow up Recently seen: Not recently seen - Additional information Additional information: Patient is an 86 year old female with a long standing post surgical wound that is taking months to heal due to the patient's underlying skin condition. Patient is currently getting wound care twice a week. patient states that tonight she was sitting in her chair and when she got up blood went everywhere so patient came to the emergency department for evaluation. patient denies nausea, vomiting, fever or chlls. Review of Systems Constitutional: denies: Fever, Chills Ears: denies: Ear pain, Drainage/discharge Nose: reports: Reviewed and negative Throat: reports: Reviewed and negative Cardiac: reports: Reviewed and negative Respiratory: reports: Reviewed and negative GI: denies: Abdominal Pain, Nausea, Vomiting, Constipation, Diarrhea : reports: Reviewed and negative Skin: reports: Rash, Lesions Musculoskeletal: reports: Reviewed and negative Neurologic: denies: Near syncope, Syncope, Confused, Headache PD PAST MEDICAL HISTORY - Past Medical History Cardiovascular: Hypertension, High cholesterol Neuro: Head injury, Fainting GI: Chronic diarrhea HEENT: Glaucoma Derm: Other - Past Surgical History Past Surgical History: Yes General: Cholecystectomy /[employer]: Tubal ligation Derm: Skin cancer surgery - Present Medications Home Medications: Ambulatory Orders Medication Instructions Recorded Confirmed Benazepril HCl 40 mg PO DAILY 09/11/16 06/10/17 Brimonidine 0.15% Ophth Drops 1 drops EACHEYE TID 09/11/16 06/10/17 [Alphagan P 0.15% Ophth Drops] Gemfibrozil 600 mg PO BID 09/11/16 06/10/17 Acetaminophen [Tylenol] 650 mg PO Q4HR PRN #0 tablet 09/28/16 06/10/17 Cartilage/Collagen/Hyalur AC/C [Hm 2 tab PO DAILY 02/27/17 06/10/17 Joint All About Baby. Ultra Tablet] Cholecalciferol (Vitamin D3) 1,000 unit PO DAILY 02/27/17 06/10/17 [Vitamin D3] Ferrous Sulfate [Feosol] 325 mg PO DAILY 02/27/17 06/10/17 Lactobacillus Acidophilus 250 mg PO BID 02/27/17 06/10/17 [Digestive Probiotic] Melatonin [Melatonin] 3 mg PO DAILY PM 02/27/17 06/10/17 Multivitamin [Theragran] 1 tab PO DAILY 02/27/17 06/10/17 [place]-3/Dha/Epa/Fish Oil [Fish Oil 1,000 mg PO DAILY 02/27/17 06/10/17 1,000 mg Softgel] Pantoprazole [Protonix] 20 mg PO DAILY 02/27/17 06/10/17 Triamcinolone Acetonide [Nasacort] 2 sprays VIRA DAILY 02/27/17 06/10/17 Ubidecarenone/Vit E Acetate [Co 100 mg PO DAILY 02/27/17 06/10/17 Q-10 100 mg Softgel] Fexofenadine HCl [Mona Allergy] 60 mg PO DAILY 06/10/17 06/10/17 - Allergies Allergies/Adverse Reactions: Allergies Allergy/AdvReac Type Severity Reaction Status Date / Time Penicillins Allergy Rash Verified 09/11/16 09:45 latanoprost AdvReac Intermediate Unknown Verified 09/11/16 17:33 codeine AdvReac Dizziness Verified 09/22/16 15:55 fluoroquinolones AdvReac Unknown Uncoded 09/12/16 15:46 tape AdvReac Unknown Uncoded 09/12/16 15:25 - Social History Does the pt smoke?: No Smoking Status: Never smoker Does the pt drink ETOH?: Yes Does the pt have substance abuse?: No PD ED PE NORMAL - Vitals Vital signs reviewed: Yes - General General: Alert and oriented X 3, No acute distress, Well developed/nourished - HEENT HEENT: Atraumatic, PERRL, Pharynx benign - Neck Neck: Supple, no meningeal sign - Cardiac Cardiac: RRR, No murmur - Respiratory Respiratory: No respiratory distress - Extremities Extremities: No deformity, Normal ROM s pain - Neuro Neuro: Alert and oriented X 3, No motor deficit, No sensory deficit, Normal speech PD ED PE EXPANDED - Abdomen Abdomen: Surgical scars, Other (oozing wound on abdominal wall, no brisk bleeding. foul smelling but no discharge). No: Tender to palpation, Rebound, Guarding Results - Vitals Vitals: Vital Signs - 24 hr 10/30/17 10/30/17 00:53 01:34 Temperature 36.2 C L Heart Rate 88 81 Respiratory 16 16 Rate Blood Pressure 203/90 H 174/88 H O2 Saturation 99 100 Oxygen O2 Source Room air PD MEDICAL DECISION MAKING - ED course Complexity details: reviewed old records, reviewed results, re-evaluated patient , considered differential, d/w patient ED course: Patient was seen and evaluated at bedside. Patient's dressings were removed which were saturated. Patient's wound was oozing some blood but there was no active bleeding. Patient's wound was cleaned and dressed with coagulative adhesive. Patient stated that her abdomen was otherwise unchanged from her baseline. Patient had follow up the next day and was stable for discharge with outpatient follow up. Departure - Departure Disposition: 01 Home, Self Care Clinical Impression: Bleeding from wound Condition: Good Instructions: ED Wound Check Post Op Bleeding Follow-Up: Kristen Casas MD [Primary Care Provider] - Tomorrow Comments: Your wound looked well appearing today. there was no sign of acute infection, but cultures were sent. the bleeding seemed to be minimal at this point and coagulative dressings were placed. You should still go to the wound clinic tomorrow. you should follow up with your doctor this week for re-evaluation. You may return to the emergency department at any time for new, worsening or uncontrollable symptoms.
[2017-06-10 01:34] VITALS: BP 174/88
== END 2017-06-10 01:35 | disposition home or self-care (01) ==
LOC: ED 00:42
DX: T81.89XA Other complications of procedures, not elsewhere classified, initial encounter (principal); I10 Essential (primary) hypertension; Z85.828 Personal history of other malignant neoplasm of skin
CPT/HCPCS: 87070; 87205; 99283

== ENCOUNTER 2017-09-09 13:39 | Outpatient (CLI) | payer MEDICARE, OTHER ==
[2017-09-09 18:16] LABS: BASOPHILS # (AUTO) 0.1 10^3/uL (0.0-0.1); BASOPHILS % (AUTO) 1.3 %; EOSINOPHILS # (AUTO) 0.4 10^3/uL (0.0-0.7); LYMPHOCYTES # (AUTO) 0.9 10^3/uL (1.5-3.5); LYMPHOCYTES % (AUTO) 20.2 %; MEAN CORPUSCULAR HEMOGLOBIN 32.1 pg (27.0-31.0); MEAN CORPUSCULAR HGB CONC 32.6 g/dL (32.0-36.0); MEAN CORPUSCULAR VOLUME 98.4 fL (81.0-99.0); MEAN PLATELET VOLUME 8.2 fL (7.9-10.8); MONOCYTES # (AUTO) 0.5 10^3/uL (0.0-1.0); MONOCYTES % (AUTO) 11.4 %; NEUTROPHILS # (AUTO) 2.5 10^3/uL (1.5-6.6); NEUTROPHILS % (AUTO) 58.1 %; PLT - PLATELET COUNT 188 10^3/uL (130-450); RED BLOOD COUNT 3.11 10^6/uL (4.20-5.40); RED CELL DISTRIBUTION WIDTH 13.5 % (12.0-15.0); WHITE BLOOD COUNT 4.2 x10^3/uL (4.8-10.8)
[2017-09-09 18:45] LABS: ALBUMIN 4.1 g/dL (3.2-5.5); CALCIUM 9.3 mg/dL (8.5-10.3); CREATININE 1.4 mg/dL (0.4-1.0)
== END 2017-09-09 13:40 | disposition home or self-care (01) ==
LOC: LAB.F 13:39
PROVIDERS: ATTEND Internal Medicine Nephrology
DX: N18.9 Chronic kidney disease, unspecified (principal); D63.1 Anemia in chronic kidney disease
CPT/HCPCS: 36415; 80048; 82040; 85025

== ENCOUNTER 2017-11-05 10:23 | Outpatient (CLI) | payer MEDICARE, OTHER ==
[2017-11-05 17:17] LABS: BILIRUBIN,URINE NEGATIVE (NEGATIVE); GLUCOSE, URINE (UA) NEGATIVE (NEGATIVE); KETONES,URINE (UA) NEGATIVE (NEGATIVE); LEUKOCYTE ESTERASE, URINE NEGATIVE (NEGATIVE); NITRITE,URINE NEGATIVE (NEGATIVE); OCCULT BLOOD,URINE NEGATIVE (NEGATIVE); PROTEIN,URINE TRACE mg/dL (NEGATIVE); UROBILINOGEN,URINE 0.2 (NORMAL) E.U./dL (NORMAL)
[2017-11-05 17:22] LABS: CLARITY,URINE CLEAR (CLEAR)
[2017-11-05 17:45] LABS: BASOPHILS # (AUTO) 0.1 10^3/uL (0.0-0.1); EOSINOPHILS # (AUTO) 0.2 10^3/uL (0.0-0.7); EOSINOPHILS % (AUTO) 3.6 %; HGB - HEMOGLOBIN 10.8 g/dL (12.0-16.0); LYMPHOCYTES # (AUTO) 1.1 10^3/uL (1.5-3.5); LYMPHOCYTES % (AUTO) 24.6 %; MEAN CORPUSCULAR HGB CONC 32.8 g/dL (32.0-36.0); MEAN CORPUSCULAR VOLUME 94.7 fL (81.0-99.0); MEAN PLATELET VOLUME 7.9 fL (7.9-10.8); MONOCYTES # (AUTO) 0.5 10^3/uL (0.0-1.0); MONOCYTES % (AUTO) 11.3 %; NEUTROPHILS # (AUTO) 2.6 10^3/uL (1.5-6.6); NEUTROPHILS % (AUTO) 58.5 %; PLT - PLATELET COUNT 271 10^3/uL (130-450); RED BLOOD COUNT 3.47 10^6/uL (4.20-5.40); RED CELL DISTRIBUTION WIDTH 13.1 % (12.0-15.0); WHITE BLOOD COUNT 4.4 x10^3/uL (4.8-10.8)
[2017-11-05 17:57] LABS: ALBUMIN 4.3 g/dL (3.2-5.5); ALBUMIN/GLOBULIN RATIO 1.3 (1.0-2.2); ALKALINE PHOSPHATASE 72 IU/L (42-121); ALT ALANINE AMINOTRANSFERASE < 10 IU/L (10-60); AST ASPARTATE AMINOTRANSFERASE 18 IU/L (10-42); BILIRUBIN,TOTAL 0.5 mg/dL (0.2-1.0); BUN - BLOOD UREA NITROGEN 43 mg/dL (6-20); CARBON DIOXIDE - CO2 20 mmol/L (21-32); CHLORIDE 104 mmol/L (101-111); CHOL/HDL RATIO 2.7 (<4.4); CHOLESTEROL 207 mg/dL; CREATININE 1.5 mg/dL (0.4-1.0); GFR - MDRD 33 (>89); GLUCOSE 98 mg/dL (70-100); HDL CHOLESTEROL 77 mg/dL; LDL CHOLESTEROL,CALCULATED 116 mg/dL; LDL/HDL RATIO 1.5 (<4.4); SODIUM 135 mmol/L (135-145); TOTAL PROTEIN 7.6 g/dL (6.7-8.2); URIC ACID 6.5 mg/dL (2.6-7.2); VLDL CHOLESTEROL 14 mg/dL
[2017-11-05 18:02] LABS: THYROID STIMULATING HORMONE 1.6 uIU/mL (0.34-5.60)
== END 2017-11-05 10:24 | disposition home or self-care (01) ==
LOC: LAB.F 10:23
PROVIDERS: ATTEND Internal Medicine
DX: G47.00 Insomnia, unspecified (principal); Q81.9 Epidermolysis bullosa, unspecified; D64.9 Anemia, unspecified; M10.9 Gout, unspecified; N39.41 Urge incontinence; N18.9 Chronic kidney disease, unspecified; K27.9 Peptic ulcer, site unspecified, unspecified as acute or chronic, without hemorrhage or perforation; J30.2 Other seasonal allergic rhinitis; H40.9 Unspecified glaucoma; R19.4 Change in bowel habit; I12.9 Hypertensive chronic kidney disease with stage 1 through stage 4 chronic kidney disease, or unspecified chronic kidney disease; Z13.6 Encounter for screening for cardiovascular disorders; Z79.899 Other long term (current) drug therapy
CPT/HCPCS: 36415; 80053; 80061; 81001; 81003; 83721; 83970; 84443; 84550; 85025; 87086

== ENCOUNTER 2018-01-07 10:11 | Outpatient (CLI) | payer MEDICARE, OTHER ==
[2018-01-07 17:45] LABS: BASOPHILS # (AUTO) 0.1 10^3/uL (0.0-0.1); BASOPHILS % (AUTO) 1.4 %; EOSINOPHILS # (AUTO) 0.1 10^3/uL (0.0-0.7); EOSINOPHILS % (AUTO) 2.5 %; HGB - HEMOGLOBIN 9.8 g/dL (12.0-16.0); LYMPHOCYTES % (AUTO) 27.2 %; MEAN CORPUSCULAR HEMOGLOBIN 30.7 pg (27.0-31.0); MEAN CORPUSCULAR HGB CONC 32.7 g/dL (32.0-36.0); MEAN CORPUSCULAR VOLUME 93.8 fL (81.0-99.0); MONOCYTES # (AUTO) 0.4 10^3/uL (0.0-1.0); MONOCYTES % (AUTO) 11.7 %; NEUTROPHILS # (AUTO) 2.1 10^3/uL (1.5-6.6); NEUTROPHILS % (AUTO) 57.2 %; PLT - PLATELET COUNT 232 10^3/uL (130-450); RED BLOOD COUNT 3.21 10^6/uL (4.20-5.40); RED CELL DISTRIBUTION WIDTH 13.8 % (12.0-15.0); WHITE BLOOD COUNT 3.7 x10^3/uL (4.8-10.8)
[2018-01-07 18:17] LABS: CALCIUM 9.2 mg/dL (8.5-10.3); CREATININE 1.5 mg/dL (0.4-1.0)
== END 2018-01-07 10:12 | disposition home or self-care (01) ==
LOC: LAB.F 10:11
PROVIDERS: ATTEND Internal Medicine Nephrology
DX: N18.9 Chronic kidney disease, unspecified (principal); D63.1 Anemia in chronic kidney disease
CPT/HCPCS: 36415; 80048; 85025

== ENCOUNTER 2018-02-11 12:12 | Outpatient (CLI) | payer OTHER, MEDICARE | END 2018-02-11 12:13 | disposition critical access hospital (66) | LOC: EMS 12:12 | PROVIDERS: ATTEND Surgery | DX: S61.412A Laceration without foreign body of left hand, initial encounter (principal); S61.411A Laceration without foreign body of right hand, initial encounter; V43.52XA Car driver injured in collision with other type car in traffic accident, initial encounter; Y92.414 Local residential or business street as the place of occurrence of the external cause | CPT/HCPCS: A0425; A0429 ==

== ENCOUNTER 2018-02-11 12:42 | Emergency (ER) | payer OTHER, MEDICARE ==
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
[2018-02-11] MEDS ORDERED: LIDOCAINE JELLY 2% 5 ML TUBE TOP STA (13:14)
[2018-02-11] MEDS ORDERED: ACETAMINOPHEN 325 MG TABLET PO STA (13:15)
[2018-02-11] MEDS ORDERED: NAPROXEN 250 MG TABLET PO STA (13:15)
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
[2018-02-11 15:08] VITALS: BP 194/82
== END 2018-02-11 15:08 | disposition home or self-care (01) ==
LOC: EDUNIT# → ED 12:42
DX: S61.412A Laceration without foreign body of left hand, initial encounter (principal); S61.411A Laceration without foreign body of right hand, initial encounter; S60.222A Contusion of left hand, initial encounter; V89.2XXA Person injured in unspecified motor-vehicle accident, traffic, initial encounter; I10 Essential (primary) hypertension
CPT/HCPCS: 12001; 73130; 99283; A9270; J3490

== ENCOUNTER 2018-05-19 11:42 | Outpatient (CLI) | payer MEDICARE, OTHER ==
[2018-05-19 17:50] LABS: BASOPHILS # (AUTO) 0.1 10^3/uL (0.0-0.1); BASOPHILS % (AUTO) 1.3 %; EOSINOPHILS # (AUTO) 0.3 10^3/uL (0.0-0.7); EOSINOPHILS % (AUTO) 7.4 %; HGB - HEMOGLOBIN 9.5 g/dL (12.0-16.0); LYMPHOCYTES # (AUTO) 0.7 10^3/uL (1.5-3.5); LYMPHOCYTES % (AUTO) 15.3 %; MEAN CORPUSCULAR HEMOGLOBIN 31.3 pg (27.0-31.0); MEAN CORPUSCULAR HGB CONC 32.6 g/dL (32.0-36.0); MEAN PLATELET VOLUME 7.6 fL (7.9-10.8); MONOCYTES # (AUTO) 0.7 10^3/uL (0.0-1.0); MONOCYTES % (AUTO) 14.7 %; NEUTROPHILS # (AUTO) 2.8 10^3/uL (1.5-6.6); NEUTROPHILS % (AUTO) 61.3 %; PLT - PLATELET COUNT 253 10^3/uL (130-450); RED BLOOD COUNT 3.05 10^6/uL (4.20-5.40); RED CELL DISTRIBUTION WIDTH 12.8 % (12.0-15.0); WHITE BLOOD COUNT 4.6 x10^3/uL (4.8-10.8)
[2018-05-19 18:16] LABS: ALBUMIN 3.8 g/dL (3.2-5.5); CALCIUM 9.3 mg/dL (8.5-10.3); CREATININE 1.4 mg/dL (0.4-1.0)
[2018-05-19 18:42] LABS: CREATININE,URINE 37.9 mg/dL; MICROALBUMIN,URINE 11.9 mg/dL (0-300.0)
== END 2018-05-19 11:43 | disposition home or self-care (01) ==
LOC: LAB.F 11:42
PROVIDERS: ATTEND Internal Medicine Nephrology
DX: N18.9 Chronic kidney disease, unspecified (principal); D63.1 Anemia in chronic kidney disease; R80.9 Proteinuria, unspecified
CPT/HCPCS: 36415; 80048; 82040; 82043; 82570; 85025